=== PATIENT | male | born 1935 | race Caucasian/White ===

== ENCOUNTER 2020-03-24 14:43 | Emergency (ER) | payer MEDICARE, BC ==
[2020-03-24] MEDS ORDERED: Morphine 4 MG/ML VIAL ONE (15:43)
[2020-03-24] MEDS ORDERED: Ondansetron PF 4 MG/2 ML Vial ONE (15:45)
[2020-03-24 15:48] LABS: #Eosinphils 0.2 thou/uL (0.0-0.7); #Lymphocytes 2.4 thou/uL (1.20-3.40); #Monocytes 0.9 thou/uL (0.11-0.59); #Neutrophils 6.9 thou/uL (1.40-6.50); %Basophils 0.5 % (0.0-1.0); %Eosinophils 1.6 % (0.0-10.0); %Lymphocytes 23.2 % (21.0-51.0); %Monocytes 8.9 % (0.0-10.0); %Neutrophils 65.9 % (42.0-75.0); Mean Corpuscular Volume 99.9 fL (78.0-98.0); Mean Platelet Volume 9.1 fL (7.4-10.4); Platelet Count 193 thou/uL (130-400); RBC Distribution Width 13.2 % (11.5-14.5); Red Blood Cell (RBC) Count 5.67 mill/uL (4.70-6.10); White Blood Cell (WBC) Count 10.4 thou/uL (4.8-10.8)
[2020-03-24 15:49] LABS: MDiff Complete? YES; Manual Diff?? NO
[2020-03-24 15:56] LABS: ALT (SGPT) 31 U/L (8-55); AST (SGOT) 31 U/L (5-34); Alkaline Phosphatase 117 U/L (40-110); Anion Gap 15 mmol/L (10-20); BUN (Urea Nitrogen) 32 mg/dL (8.4-25.7); Bilirubin, Total 0.8 mg/dL (0.2-1.2); Calc. Creatinine Clearance 0 mL/min (70-130); Calcium 9.2 mg/dL (7.8-10.44); Carbon Dioxide 27 mmol/L (23-31); Chloride 102 mmol/L (98-107); Estimated GFR-MDRD 54; Globulin 3.4 g/dL (2.4-3.5); Glucose 119 mg/dL (83-110); Potassium 4.7 mmol/L (3.5-5.1); Protein, Total 7.4 g/dL (5.8-8.1); Sodium 139 mmol/L (136-145)
[2020-03-24] MEDS ORDERED: Lidocaine Viscous Sol 2% 15 ml UD Cup ONE (16:55)
[2020-03-24] MEDS ORDERED: Mag-Al Plus 1200 MG/1200 MG/120 MG/30 ML UDCUP ONE (16:55)
--- NOTE | 2020-03-24 18:03 | RAD ---
RIGHT RIBS PA CHEST: Date: 03-24-2020 Comparison: 07-31-14 done at [facility] FINDINGS: The heart is borderline in size but similar to the prior study. A bipolar cardiac pacer has been add ed in the interval. There has been a prior CABG. There are hazy infiltrative changes in the left costophrenic angle. This was present to some extent i n 2013. Thus, I am not convinced that this anything but chronic. The lungs otherwise show no major in filtrate or effusion. Regarding the right ribs, no fractures were appreciated. The visible ribs appear intact. IMPRESSION: 1. No definite acute findings. See CT report to follow. 2. Haziness in the left costophrenic angle, presumably chronic. POS: HOME
[2020-03-24] MEDS ORDERED: Aspirin Chewable 81 MG TAB ONE (18:36)
--- NOTE | 2020-03-24 18:39 | CT ---
CT OF THE CHEST WITH CONTRAST: Date: 03-24-[address] of the chest was performed for evaluation following trauma. FINDINGS: There are chronic fibrotic changes in this patient's lung, particularly the lung bases, and in partic ular the left lower lobe near the costophrenic angle. I do not see any acute infiltrates, effusions, or signs of pneumothorax. There is no sign of widening or shift of the mediastinum. No mediastinal he matoma was noted. There is moderate opacification of the pulmonary arteries which showed no defects i n the larger pulmonary branches to suggest emboli. There is no pericardial effusion. The spine has degenerative changes but no fractures were seen. No rib fractures were appreciated. Sca ns into the upper abdomen showed no obvious abnormality of the visualized portions of the liver, sple en, and pancreas. Neither adrenal gland seems large. IMPRESSION: Chronic parenchymal changes but no acute traumatic findings of concern. Preliminary report called to Sulema in ER at 1755 on 03-24-2020. POS: HOME
[2020-03-24 18:41] LABS: Bacteria/HPF None Seen HPF (None Seen); Bilirubin Negative (Negative); Blood, Urine Trace (Negative); Clarity Clear (Clear); Glucose, Urine (Dipstick) Negative (Negative); Ketone, Urine Negative (Negative); Leukocyte Negative (Negative); Nitrite Negative (Negative); Protein, Urine (Dipstick) Negative (Neg-Trace); RBC/HPF 0-3 HPF (0-3); Squamous Epithelial 0-3 HPF (0-3); WBC/HPF None Seen HPF (0-3); pH, Urine 5.5 (5.0-9.0)
== END 2020-03-24 19:30 | disposition short-term general hospital (02) ==
LOC: BURERS 14:43
DX: I95.1 Orthostatic hypotension (principal); I49.9 Cardiac arrhythmia, unspecified; E78.5 Hyperlipidemia, unspecified; I10 Essential (primary) hypertension; Z87.891 Personal history of nicotine dependence; Z79.82 Long term (current) use of aspirin; Z79.899 Other long term (current) drug therapy
CPT/HCPCS: 36415; 51701; 71260; 80053; 81003; 81015; 83605; 83690; 83880; 84484; 85025; 93005; 96361; 96374; 96375; J2270; J2405

== ENCOUNTER 2020-05-21 19:14 | Emergency (ER) | payer MEDICARE, BC ==
[2020-05-21 19:40] LABS: #Basophils 0.1 thou/uL (0.0-0.2); #Lymphocytes 1.4 thou/uL (1.20-3.40); #Monocytes 1.2 thou/uL (0.11-0.59); #Neutrophils 13.7 thou/uL (1.40-6.50); %Basophils 0.4 % (0.0-1.0); %Eosinophils 0.2 % (0.0-10.0); %Lymphocytes 8.7 % (21.0-51.0); %Monocytes 7.1 % (0.0-10.0); %Neutrophils 83.6 % (42.0-75.0); Mean Corpuscular HGB CONC 30.4 g/dL (32.0-36.0); Mean Corpuscular Hemoglobin 30.8 pg (27.0-31.0); Mean Platelet Volume 8.5 fL (7.4-10.4); Platelet Count 165 thou/uL (130-400); RBC Distribution Width 13.1 % (11.5-14.5); Red Blood Cell (RBC) Count 4.88 mill/uL (4.70-6.10); White Blood Cell (WBC) Count 16.4 thou/uL (4.8-10.8)
[2020-05-21 19:57] LABS: PTT 32.6 sec (22.9-36.1)
[2020-05-21 20:00] LABS: ALT (SGPT) 23 U/L (8-55); AST (SGOT) 23 U/L (5-34); Acetaminophen Less than 6.0 mcg/mL (10.0-30.0); Albumin 3.6 g/dL (3.4-4.8); Alcohol Less than 10 mg/dL (Less than 10); Alkaline Phosphatase 113 U/L (40-110); Anion Gap 15 mmol/L (10-20); BUN (Urea Nitrogen) 22 mg/dL (8.4-25.7); Bilirubin, Total 0.8 mg/dL (0.2-1.2); Calc. Creatinine Clearance 0 mL/min (70-130); Calcium 8.5 mg/dL (7.8-10.44); Carbon Dioxide 26 mmol/L (23-31); Chloride 101 mmol/L (98-107); Estimated GFR-MDRD 67; Glucose 129 mg/dL (83-110); Potassium 3.9 mmol/L (3.5-5.1); Protein, Total 6.6 g/dL (5.8-8.1); Salicylate Less than 8.0 mg/dL (15.0-30.0); Sodium 138 mmol/L (136-145)
[2020-05-21 20:01] LABS: Prothrombin Time 13.4 sec (12.0-14.7)
[2020-05-21 20:03] LABS: D-Dimer Test 0.9 *mcg/mL (0.27-0.43)
--- NOTE | 2020-05-21 20:23 | CT ---
CT OF THE CERVICAL SPINE 05/21/[address] of the cervical spine was performed following trauma. Axial slices were acquired followed b y coronal and sagittal reconstructions. No fracture or dislocation was seen at any level. There is mild anterior subluxation of C5 on C6 that appears to be due to degenerative change. The soft tissues show no thickening. The C1 to dens distan ce is normal. Disc space narrowing is prominent at most cervical levels, but especially C5-C6, C6-C7, and C7-T1. Findings by level follows: C1-C2: No acute findings. C2-C3: Prominent right facet arthritis. C3-C4: Bilateral facet arthritic change with moderate bilateral foraminal narrowing. C4-C5: Severe bilateral foraminal narrowing with very prominent left facet arthritis. C5-C6: Mild to moderate right foraminal narrowing and moderate to severe left foraminal narrowing due to osteophytes. C6-C7: Mild to moderate bilateral foraminal narrowing. C7-T1: Mild bilateral foraminal narrowing. T1-T2: No acute findings. T2-T3: No acute findings. The lung apices are clear and fully inflated. No soft tissue masses were seen in the neck. The patie nt's thyroid gland is prominent in size bilaterally. IMPRESSION: Severe degenerative change but no acute traumatic findings. Preliminary report called to Dr. Blue at 2007 on 05/21/20. POS: HOME
--- NOTE | 2020-05-21 20:26 | CT ---
CT OF THE BRAIN WITHOUT CONTRAST: 05/21/[address] was performed. The ventricle are normal in size for age and atrophy. No intracranial bleeding, mass or extra-axial hematoma was seen. There is no sign of acute stroke, edema, or other a cute change. A tiny lacunar infarct is suggested in the left basal ganglia. No skull fractures were s een. The sphenoid sinus and visible paranasal sinuses are clear. IMPRESSION: No acute intracranial findings. Preliminary report called to Dr. Blue at 2007 on 05/21/20. POS: HOME
--- NOTE | 2020-05-21 20:31 | RAD ---
PORTABLE CHEST: 05/21/20 An AP portable film at 2004 is compared with a 03/24/20 study. I also reviewed the report of a 03/24/20 CT of the chest. The heart size is stable. The cardiac pacer remains in place. Prior CABG has been done. The depth of inspiration is very shallow today which somewhat crowds the markings. This makes determi nation of vascular congestion less reliable, but I cannot exclude a small element of congestion. Hazy areas in the lung bases are partially due to chronic fibrotic change which the patient is known to h ave, particularly in the left base. Never, the less, the markings in the bases are a bit more promine nt than even her usual fibrosis. An element of congestive change or even infection is not excluded. Serial follow-up films are suggested, in concert with comparing with her clinical symptoms and other lab work. IMPRESSION: 1. Prominence of vessels and lung markings; in part due to a shallow breath, but I cannot exclud e some mild congestion of the vessels. 2. Haziness in the lung bases, in part due to chronic fibrotic change, especially in the left ba se. But even allowing for this, the findings are more prominent than expected. Either some congestio n may contribute to this or there could be an element of infection. Serial follow-up x-rays recommend ed. POS: HOME
[2020-05-21 20:44] LABS: Bilirubin Small (Negative); Blood, Urine Negative (Negative); Clarity Clear (Clear); Glucose, Urine (Dipstick) Negative (Negative); Ketone, Urine Trace mg/dL (Negative); Leukocyte Negative (Negative); Nitrite Negative (Negative); Protein, Urine (Dipstick) Negative (Neg-Trace)
[2020-05-21] MEDS ORDERED: cefTRIAXone\\ROCEPHIN 1 GM VIAL ONE (20:54)
[2020-05-21] MEDS ORDERED: Azithromycin 500 MG VIAL ONE (20:57)
== END 2020-05-21 22:10 | disposition short-term general hospital (02) ==
LOC: BURERS 19:14
DX: R47.1 Dysarthria and anarthria (principal); G93.40 Encephalopathy, unspecified; J98.8 Other specified respiratory disorders; E78.5 Hyperlipidemia, unspecified; I10 Essential (primary) hypertension; Z95.1 Presence of aortocoronary bypass graft; Z87.891 Personal history of nicotine dependence; Z79.899 Other long term (current) drug therapy
CPT/HCPCS: 36415; 70450; 71045; 72125; 80053; 80307; 81003; 83880; 84443; 84484; 85025; 85379; 85610; 85730; 93005; 96365; 96375; J0456; J0696

== ENCOUNTER 2020-11-25 13:48 | Emergency (ER) | payer MEDICARE, BC ==
[2020-11-25 14:20] LABS: #Lymphocytes 2.1 thou/uL (1.20-3.40); #Neutrophils 4.6 thou/uL (1.40-6.50); %Basophils 0.4 % (0.0-1.0); %Eosinophils 0.5 % (0.0-10.0); %Lymphocytes 26.7 % (21.0-51.0); %Monocytes 12.8 % (0.0-10.0); %Neutrophils 59.6 % (42.0-75.0); Hemoglobin 16.3 g/dL (14.0-18.0); Mean Corpuscular HGB CONC 31.8 g/dL (32.0-36.0); Mean Corpuscular Hemoglobin 30.9 pg (27.0-31.0); Mean Corpuscular Volume 97.2 fL (78.0-98.0); Mean Platelet Volume 7.9 fL (7.4-10.4); Platelet Count 166 thou/uL (130-400); RBC Distribution Width 12.7 % (11.5-14.5); Red Blood Cell (RBC) Count 5.28 mill/uL (4.70-6.10); White Blood Cell (WBC) Count 7.8 thou/uL (4.8-10.8)
[2020-11-25 14:35] LABS: ALT (SGPT) 22 U/L (8-55); AST (SGOT) 23 U/L (5-34); Albumin 3.7 g/dL (3.4-4.8); Alkaline Phosphatase 104 U/L (40-110); Anion Gap 16 mmol/L (10-20); BUN (Urea Nitrogen) 14 mg/dL (8.4-25.7); Bilirubin, Total 1.8 mg/dL (0.2-1.2); Calc. Creatinine Clearance 0 mL/min (70-130); Calcium 9.1 mg/dL (7.8-10.44); Carbon Dioxide 28 mmol/L (23-31); Chloride 104 mmol/L (98-107); Globulin 2.6 g/dL (2.4-3.5); Glucose 97 mg/dL (83-110); Potassium 3.8 mmol/L (3.5-5.1); Protein, Total 6.3 g/dL (5.8-8.1); Sodium 144 mmol/L (136-145)
[2020-11-25 14:55] LABS: CKMB 2.5 ng/mL (0-6.6)
[2020-11-25] MEDS ORDERED: Ketorolac Tromethamine 30 MG/ML VIAL ONE (15:20)
[2020-11-25 16:00] LABS: Bilirubin Small (Negative); Blood, Urine Negative (Negative); Clarity Hazy (Clear); Glucose, Urine (Dipstick) Negative (Negative); Ketone, Urine 40 mg/dL (Negative); Leukocyte Negative (Negative); Nitrite Negative (Negative); Protein, Urine (Dipstick) 100 mg/dL (Neg-Trace); Specific Gravity, Urine 1.028 (1.002-1.036); pH, Urine 5.5 (5.0-9.0)
[2020-11-25 16:12] LABS: Bacteria/HPF 2+ HPF (None Seen); RBC/HPF 0-3 HPF (0-3); Squamous Epithelial 0-3 HPF (0-3); WBC/HPF 0-3 HPF (0-3)
== END 2020-11-25 17:35 | disposition short-term general hospital (02) ==
LOC: BURERS 13:48
DX: R41.82 Altered mental status, unspecified (principal); E78.5 Hyperlipidemia, unspecified; I10 Essential (primary) hypertension; Z95.1 Presence of aortocoronary bypass graft; Z87.891 Personal history of nicotine dependence; Z79.899 Other long term (current) drug therapy
CPT/HCPCS: 70450; 80053; 81003; 81015; 82553; 83605; 84484; 85025; 87086; 93005; 96374; J1885

== ENCOUNTER 2021-10-15 14:47 | Emergency (ER) | payer OTHER, MEDICARE, BC ==
[2021-10-15] MEDS ORDERED: HYDROcodone/Acetaminophen 5/325 mg Tablet ONE (15:21)
== END 2021-10-15 15:45 | disposition home or self-care (01) ==
LOC: BURERS 14:47
DX: S29.9XXA Unspecified injury of thorax, initial encounter (principal); E78.5 Hyperlipidemia, unspecified; I10 Essential (primary) hypertension; W01.0XXA Fall on same level from slipping, tripping and stumbling without subsequent striking against object, initial encounter; Z87.891 Personal history of nicotine dependence
CPT/HCPCS: 71045